=== PATIENT | male | born 1965 | race Caucasian/White ===

== ENCOUNTER 2016-06-16 15:33 | Emergency (ER) | payer SELFPAY ==
[~2016-06-16 15:33] MED LIST: LEVA500T PO; MELO15TA2 PO; ULTR50TA5 PO; Z.0.NO CURRENT MEDS
[2016-06-16 15:36] VITALS: BP 131/94; PULSE 92; RESP 15; TEMP 98.2; O2SAT 98
--- NOTE | 2016-06-16 16:39 | PD ---
HPI Chief Complaint: Medication Refill Request Time Seen by Provider: 16:38 Travel History International Travel<30 days: No Contact w/Intl Traveler<30days: No Traveled to known affect area: No History of Present Illness HPI 51-year-old male presents to the ED for medication refill. Patient endorses pain and swelling in the testicles, left greater than right. States this is been present for approximately 6 months. He denies fever, chills, abdominal pain, dysuria, penile discharge, perineal pain. Patient states he was seen in the ED a few weeks ago, prescribed Levaquin. He states he is unable to afford this medication and requests a different prescription. PFSH Past Medical History Blood Disorders: No Cancer: No Cardiovascular Problems: No Chemotherapy: No Diminished Hearing: No Endocrine: No Genitourinary: No Immune Disorder: No Musculoskeletal: No Neurologic: No Psychiatric: No Respiratory: No Radiation Therapy: No Past Surgical History AICD: No Joint Replacement: No Pacemaker: No Other Surgery: No Social History Alcohol Use: No Tobacco Use: Yes (1 PPD) Substance Use: No Allergies-Medications (Allergen,Severity, Reaction): Coded Allergies: No Known Allergies (Verified , 06/16/16) Reported Meds & Prescriptions Reported Meds & Active Scripts Active Levaquin (Levofloxacin) 500 Mg Tab 500 Mg PO DAILY 10 Days Ultram (Tramadol HCl) 50 Mg Tab 50 Mg PO Q6H PRN Review of Systems Except as stated in HPI: all other systems reviewed are Neg Physical Exam Narrative GENERAL: Well-nourished, well-developed white male in no acute distress. SKIN: Warm and dry. HEAD: Normocephalic. EYES: No scleral icterus. No injection or drainage. NECK: Supple, trachea midline. No JVD or lymphadenopathy. CARDIOVASCULAR: Regular rate and rhythm without murmurs, gallops, or rubs. RESPIRATORY: Breath sounds equal bilaterally. No accessory muscle use. GASTROINTESTINAL: Abdomen soft, non-tender, nondistended. Active bowel sounds. No palpable masses. GENITOURINARY: Deferred until a nurse was present. Unable to perform, patient left AMA MUSCULOSKELETAL: No cyanosis, or edema. Patient is ambulatory and moves extremities spontaneously. BACK: Nontender without obvious deformity. No CVA tenderness. Data Data Last Documented VS Vital Signs Date Time Temp Pulse Resp B/P Pulse Ox O2 Delivery O2 Flow Rate FiO2 06/16/16 15:36 98.2 92 15 131/94 98 Orders Urinalysis - C+S If Indicated (06/16/16 16:56) Gc And Chlamydia Pcr (06/16/16 16:56) Sodium Chloride 0.9% Flush (Ns Flush) (06/16/16 17:00) MDM Medical Decision Making Medical Screen Exam Complete: Yes Emergency Medical Condition: Yes Medical Record Reviewed: Yes Differential Diagnosis Hydrocele versus spermatocele versus epididymitis versus varicocele versus hernia versus orchitis versus prostatitis versus other Narrative Course 51-year-old male presents to the ED for medication refill. Patient endorses pain and swelling in the testicles, left greater than right. States this is been present for approximately 6 months. He denies fever, chills, abdominal pain, dysuria, penile discharge, perineal pain. Patient states he was seen in the ED a few weeks ago, prescribed Levaquin. He states he is unable to afford this medication and requests a different prescription. Vitals reviewed. Physical exam is unremarkable. UA, GC, chlamydia ordered. I deferred the male exam until the nurse was available to be present. Upon reentering the room it was found that the patient left AMA. Diagnosis Primary Impression: Left against medical advice Disposition: 07 AGAINST MEDICAL ADVICE Norma Meneses Jun 16, 2016 16:39
[2016-06-16] MEDS ORDERED: SODIUM CHLORIDE 0.9% FLUSH 5 ML FLUSH IVF PRN (17:00)
== END 2016-06-16 18:56 | disposition left against medical advice (07) ==
LOC: NETRI 15:33
DX: N50.812 Left testicular pain (principal); N50.811 Right testicular pain; N50.89 Other specified disorders of the male genital organs; F17.200 Nicotine dependence, unspecified, uncomplicated; Z53.20 Procedure and treatment not carried out because of patient's decision for unspecified reasons
CPT/HCPCS: 99281

== ENCOUNTER 2016-06-23 12:57 | Emergency (ER) | payer SELFPAY ==
[~2016-06-23] VITALS: Ht 180.3 cm; Wt 75.0 kg
[~2016-06-23 12:57] MED LIST changes: -MELO15TA2 PO; -Z.0.NO CURRENT MEDS
[2016-06-23 13:11] VITALS: BP 125/90; PULSE 77; RESP 16; TEMP 97.8; O2SAT 97
== END 2016-06-23 14:28 | disposition left against medical advice (07) ==
LOC: PHED 12:57
DX: N44.2 Benign cyst of testis (principal)
CPT/HCPCS: 99281

== ENCOUNTER 2016-07-07 13:14 | Emergency (ER) | payer SELFPAY ==
[~2016-07-07] VITALS: Ht 180.3 cm; Wt 79.5 kg
[2016-07-07 13:15] VITALS: BP 133/87; PULSE 102; RESP 12; TEMP 97.8; O2SAT 96
--- NOTE | 2016-07-07 13:44 | PD ---
HPI Chief Complaint: Complaint Time Seen by Provider: 13:30 Travel History International Travel<30 days: No Contact w/Intl Traveler<30days: No Traveled to known affect area: No History of Present Illness HPI 51-year-old male presents for evaluation of left testicle pain. Symptoms started 4-6 months ago. It is an aching pain in the left testicle that is worse when sitting. No alleviating factors. Denies abdominal pain, nausea or vomiting, fevers or chills, rectal pain, dysuria, hematuria, flank pain, scrotal trauma, urethral discharge, new sexual partners. The patient was seen here for evaluation of this issue on May 13. He had an ultrasound which revealed small hydroceles and small left-sided spermatoceles. He was given a ten-day course of Levaquin which initially he cannot afford. He was eventually able to buy the medication and he finished 4 days ago. The pain is worse in the left testicle since then which prompted her reevaluation. The patient was also seen here in June 16 left AMA and he checked in on June 23 but he left without being seen. He has not yet followed up with a primary care physician or urologist for evaluation of this issue. He has no other complaints. PFSH Past Medical History Blood Disorders: No Cancer: No Cardiovascular Problems: No Chemotherapy: No Diminished Hearing: No Endocrine: No Genitourinary: No Immune Disorder: No Musculoskeletal: No Neurologic: No Psychiatric: No Respiratory: No Radiation Therapy: No Past Surgical History AICD: No Joint Replacement: No Pacemaker: No Other Surgery: No Social History Alcohol Use: No Tobacco Use: Yes (1 PPD) Substance Use: No Allergies-Medications (Allergen,Severity, Reaction): Coded Allergies: No Known Allergies (Verified , 07/07/16) Reported Meds & Prescriptions Reported Meds & Active Scripts Active No Active Prescriptions or Reported Medications Review of Systems Except as stated in HPI: all other systems reviewed are Neg Physical Exam Narrative GENERAL: Well-developed well-nourished male in no acute distress SKIN: Warm and dry. HEAD: Atraumatic. Normocephalic. EYES: Pupils equal and round. No scleral icterus. No injection or drainage. CARDIOVASCULAR: Regular rate and rhythm. No murmur appreciated. RESPIRATORY: No accessory muscle use. Clear to auscultation. Breath sounds equal bilaterally. GASTROINTESTINAL: Abdomen soft, non-tender, nondistended. Hepatic and splenic margins not palpable. : Normal appearing scrotum with descended testicles, no urethral discharge. The patient has some tenderness to palpation to the left testicle. No tenderness to palpation to the right testicle. No scrotal edema or erythema. There is no palpable inguinal hernia. There is no inguinal lymphadenopathy. No skin changes. MUSCULOSKELETAL: No obvious deformities. No clubbing. No cyanosis. No edema. NEUROLOGICAL: Awake and alert. No obvious cranial nerve deficits. Motor grossly within normal limits. Normal speech. Data Data Last Documented VS Vital Signs Date Time Temp Pulse Resp B/P Pulse Ox O2 Delivery O2 Flow Rate FiO2 07/07/16 13:15 97.8 102 12 133/87 96 Room Air Orders Urinalysis - C+S If Indicated (07/07/16 13:38) Us Testicles W Doppler (07/07/16 13:38) Urine Culture (07/07/16 13:35) Azithromycin (Zithromax) (07/07/16 15:15) Ceftriaxone Inj (Rocephin Inj) (07/07/16 15:15) Lidocaine 1% Inj (50 Ml) (Xylocaine 1% I (07/07/16 15:15) Naproxen (Naprosyn) (07/07/16 15:15) Labs Laboratory Tests Test 07/07/16 13:35 Urine Color DARK-YELLOW Urine Turbidity CLEAR Urine pH 5.5 Urine Specific [place] 1.030 Urine Protein 30 mg/dL Urine Glucose (UA) NEG mg/dL Urine Ketones TRACE mg/dL Urine Occult Blood NEG Urine Nitrite NEG Urine Bilirubin NEG Urine Urobilinogen 4.0 MG/DL Urine Leukocyte Esterase MOD Urine RBC 1 /hpf Urine WBC 18 /hpf Urine Squamous Epithelial <1 /hpf Cells Urine Hyaline Casts 8 /lpf Urine Mucus MOD /lpf Microscopic Urinalysis Comment CULTURE INDICATED MDM Medical Decision Making Medical Screen Exam Complete: Yes Emergency Medical Condition: Yes Medical Record Reviewed: Yes Differential Diagnosis Varicocele, spermatocele, hydrocele, epididymitis, orchitis, testicular torsion , inguinal hernia, scrotal cellulitis Narrative Course 51-year-old male presents with 4-6 months of left testicle pain. He recently finished a ten-day course of Levaquin with no improvement of his symptoms. Physical examination is benign. He does have tenderness to palpation localized focally to the left testicle with no obvious scrotal changes. He has no symptoms to suggest urethritis. Plan is for urinalysis, scrotal ultrasound. This patient would benefit from urology follow-up given the chronicity of his symptoms. Ultrasound reveals no acute abnormalities. Cystic structures bilaterally as well as small bilateral hydroceles. Urinalysis does reveal pyuria and so pending urine culture the patient will be given a prescription for Bactrim. He will also be given azithromycin and Rocephin here to cover for chlamydia and gonorrhea. He is encouraged to follow-up with a urologist as an outpatient. He is stable for discharge. Diagnosis Primary Impression: Pain in left testicle Additional Impression: Pyuria Referrals: Urologist Additional Instructions: Follow-up with a urologist if symptoms persist. Medication as prescribed. Avoid tobacco products. Return for any emergent medical conditions. Med/Other Pt SpecificInfo: Prescription(s) given Scripts Sulfamethoxazole-Trimethoprim (Bactrim DS)800-160 Mg Tab1 Tab PO BID #20 TAB Ref 0 Prov:Yuliana Cheng MD 07/07/16 Naproxen 500 Mg [id number] Mg PO BID 7 Days Ref 0 Prov:Yuliana Cheng MD 07/07/16 Disposition: 01 DISCHARGE HOME Condition: Stable Dieter Hoyt Jul 07, 2016 13:44
[2016-07-07 14:14] LABS: BLOOD, URINE NEG (NEG); GLUCOSE,URINE NEG (NEG); HYALINE CAST, URINE 8 /lpf (RARE); KETONE, URINE TRACE mg/dL (NEG); MUCUS URINE MOD /lpf (OCC); NITRITE,URINE NEG (NEG); PH, URINE 5.5 (5.0-8.5); SQUAMOUS EPITHELIAL CELL URINE <1 /hpf (0-5); URINE COLOR DARK-YELLOW (YELLW/STRAW)
[2016-07-07 14:24] LABS: COMMENT (UR) CULTURE INDICATED; CULTURE IF INDICATED CULTURE INDICATED
--- NOTE | 2016-07-07 15:05 | RADRPT ---
EXAM DATE/TIME: 07/07/2016 14:14 [facility] COMPARISON: US TESTICLE W/DOPPLER, May 13, 2016, 22:55. INDICATIONS : Testicle pain. MEDICAL HISTORY : Testicle pain. SURGICAL HISTORY : Right hand surgery. ENCOUNTER: Subsequent ACUITY: 2 months PAIN SCORE: 5/10 LOCATION: Left testicle. MEASUREMENTS: RIGHT TESTICLE: 3.3 x 2.4 x 3.3cm LEFT TESTICLE: 4.2 x 2.6 x 3.2cm FINDINGS: RIGHT TESTICLE: Homogeneous echotexture without intra or extratesticular mass. Blood flow is symmetric and within no rmal limits. No varicocele. There is a small hydrocele. Small cystic structures are present in the h ead of the epididymis. LEFT TESTICLE: Homogeneous echotexture without intra or extratesticular mass. Blood flow is symmetric and within no rmal limits. No varicocele. There is a small hydrocele. Small cystic structures are present in the h ead of the epididymis. SCROTUM: Within normal limits. CONCLUSION: 1. The testicles remain intrinsically normal in appearance with symmetric normal color flow. 2. Small cystic structures in the head of both epididymides. These likely represent small spermatocel es. 3. Small bilateral hydroceles. Jevon Duron MD on July 07, 2016 at 15:01 Board Certified Radiologist. This report was verified electronically.
[2016-07-07] MEDS ORDERED: BACT800T5 PO (15:11)
[2016-07-07] MEDS ORDERED: NAPR500T PO (15:11)
[2016-07-07] MEDS ORDERED: NAPROXEN 500 MG TAB PO ONE (15:15)
[2016-07-07] MEDS ORDERED: cefTRIAXone 250 MG VIAL IM ONE (15:15)
[2016-07-07] MEDS ORDERED: LIDOCAINE HCL 1% 50 ML VIAL XX ONE (15:15)
[2016-07-07] MEDS ORDERED: AZITHROMYCIN 250 MG TAB PO ONE (15:15)
== END 2016-07-07 15:50 | disposition home or self-care (01) ==
LOC: NETRI 13:14
DX: N50.812 Left testicular pain (principal); N39.0 Urinary tract infection, site not specified
CPT/HCPCS: 76870; 81001; 87086; 93975; 96372; 99284; J0696

== ENCOUNTER 2016-09-03 17:23 | Emergency (ER) | payer SELFPAY ==
[~2016-09-03 17:23] MED LIST changes: +BACT800T5 PO; -LEVA500T PO; +NAPR500T PO; -ULTR50TA5 PO
[2016-09-03 17:27] VITALS: BP 130/91; PULSE 82; RESP 20; TEMP 97.4; O2SAT 98
[2016-09-03] MEDS ORDERED: DOXY100C PO (18:32)
[2016-09-03] MEDS ORDERED: DICL75TA PO (18:32)
--- NOTE | 2016-09-03 18:39 | PD ---
HPI Chief Complaint: Lump, Cyst, Hernia Time Seen by Provider: 18:34 Travel History International Travel<30 days: No Contact w/Intl Traveler<30days: No Traveled to known affect area: No History of Present Illness HPI 51-year-old white male presents to emergency Department with complaints of recurrent left testicular pain. The patient has been treated several times in emergency department for the same problem. He has not follow-up with a urologist or the health Department. He states that he has had pain once again over last 1-2 weeks in the left testicle. It is moderate in nature. He denies any associated symptoms of fever chills, nausea or vomiting or abdominal pain. He does report some lower back pain, increased urinary frequency and dysuria. He denies any urethral discharge or rashes. He states that this is a similar type pain that he's had in the past. PFSH Past Medical History Narrative Medical Epididymitis Blood Disorders: No Cancer: No Cardiovascular Problems: No Chemotherapy: No Diminished Hearing: No Endocrine: No Genitourinary: No Immune Disorder: No Musculoskeletal: No Neurologic: No Psychiatric: No Respiratory: No Radiation Therapy: No Tetanus Vaccination: < 5 Years Influenza Vaccination: No Past Surgical History Surgical History: No Previous Surgery AICD: No Joint Replacement: No Pacemaker: No Other Surgery: No Social History Alcohol Use: Yes Tobacco Use: Yes (1 PPD) Substance Use: No Allergies-Medications (Allergen,Severity, Reaction): Coded Allergies: No Known Allergies (Verified , 09/03/16) Reported Meds & Prescriptions Reported Meds & Active Scripts Active Doxycycline Hyclate 100 Mg Cap 100 Mg PO BID Diclofenac Sodium DR (Diclofenac Sodium) 75 Mg Tabdr 75 Mg PO BID Review of Systems Except as stated in HPI: all other systems reviewed are Neg Physical Exam Narrative GENERAL: This is a well-nourished, well-developed patient, in no apparent distress. SKIN: No rashes, ecchymoses or lesions. Warm and dry. HEAD: Atraumatic. Normocephalic. EYES: PERRL, EOMI, no discharge or injection. No scleral icterus. EARS: Clear NOSE: Nasal turbinates appear normal. THROAT: Mucosa pink and moist. Airway patent. NECK: Trachea midline. supple, moves head freely. LUNGS: Clear to auscultation. CV: Regular in rhythm. ABDOMEN: Soft nontender. EXT: No clubbing cyanosis or edema. GENITOURINARY: Circumcised. Testes descended bilaterally without evidence of rotation. There is no scrotal swelling. No scrotal erythema or warmth. The patient has tenderness to the left epididymitis. There is no hernias. No lesions or erythema. No urethral discharge. There is no tenderness around the anus or groin. No obvious abscess. Data Data Last Documented VS Vital Signs Date Time Temp Pulse Resp B/P Pulse Ox O2 Delivery O2 Flow Rate FiO2 09/03/16 17:27 97.4 82 20 130/91 98 Room Air [facility] Medical Decision Making Medical Screen Exam Complete: Yes Emergency Medical Condition: Yes Medical Record Reviewed: Yes Differential Diagnosis Differential diagnoses: Varicocele, hydrocele, spermatocele, epididymitis, urethritis, perianal abscess Narrative Course Patient's 2 ultrasounds have been reviewed along with his charts. His clinical history and exam is consistent with epididymitis. He has been strongly advised to follow-up with urology, patient assistance and or the [facility] Department. The patient has been advised that he has reached maximum care through the ER and that this needs to be followed up by the specialist. He is discharged in stable condition. This is epididymitis Diagnosis Primary Impression: Epididymitis Patient Instructions: General Instructions Additional Instructions: Rest. Increase fluids. Follow-up with the [facility] for further evaluation and treatment. Doxycycline and diclofenac. Follow-up with patient assistance. Follow-up with Dr. Krishnan in one week. Always use a condom. Return to the ER if any problems. Med/Other Pt SpecificInfo: Prescription(s) given Scripts Doxycycline Hyclate 100 Mg [id number] Mg PO BID #20 CAP Prov:Yuliana Cheng MD 09/03/[address] 75 Mg Tabdr75 Mg PO BID #20 TAB Prov:Yuliana Cheng MD 09/03/16 Disposition: 01 DISCHARGE HOME Condition: Stable Juliano Madden Sep 03, 2016 18:39
[2016-09-03 18:53] VITALS: BP 126/85; TEMP 97.8
== END 2016-09-03 18:54 | disposition home or self-care (01) ==
LOC: NEPD 17:23
DX: N45.1 Epididymitis (principal); F17.210 Nicotine dependence, cigarettes, uncomplicated
CPT/HCPCS: 99283

== ENCOUNTER 2017-09-25 12:58 | Emergency (ER) | payer SELFPAY ==
[~2017-09-25] VITALS: Ht 180.3 cm; Wt 80.0 kg
[~2017-09-25 12:58] MED LIST changes: -BACT800T5 PO; +DICL75TA PO; +DOXY100C PO; -NAPR500T PO
[2017-09-25 13:11] VITALS: BP 177/93; PULSE 47; RESP 16; O2SAT 99
[2017-09-25] MEDS ORDERED: SODIUM CHLOR 0.9% 1000 ML INJ 1,000 ML IV SCH (13:26)
[2017-09-25] MEDS ORDERED: KETOROLAC TROMETHAMINE 30 MG/ML (IVP) VIAL IVP ONE (13:30)
[2017-09-25] MEDS ORDERED: SODIUM CHLORIDE 0.9% FLUSH 10 ML FLUSH IV FLUSH PRN (13:30)
[2017-09-25 13:40] VITALS: O2SAT 100
[2017-09-25] MEDS ORDERED: DIATRIZOATE MEGLUM/DIATRIZOATE SOD 9 ML CUP ONE (13:42)
[2017-09-25 14:12] LABS: AUTOMATED NEUTROPHIL # 14.4 TH/MM3 (1.8-7.7); BASOPHIL # 0.1 TH/MM3 (0-0.2); BASOPHIL % 0.4 % (0.0-2.0); EOSINOPHIL # 0.2 TH/MM3 (0-0.4); HEMATOCRIT 42.4 % (39.0-51.0); HEMOGLOBIN 14.6 GM/DL (13.0-17.0); LYMPH % 11.4 % (9.0-44.0); MEAN CELL VOLUME 84.8 FL (80.0-100.0); MEAN CORPUSCULAR HEMOGLOBIN 29.1 PG (27.0-34.0); MEAN CORPUSCULAR HGB CONC 34.3 % (32.0-36.0); MEAN PLATELET VOLUME 9.5 FL (7.0-11.0); MONO % 5.3 % (0.0-8.0); MONOCYTE # 0.9 TH/MM3 (0-0.9); NEUT % 81.9 % (16.0-70.0); PLATELET COUNT 73 TH/MM3 (150-450); RED CELL DISTRIBUTION WIDTH 14.6 % (11.6-17.2); WHITE BLOOD COUNT 17.5 TH/MM3 (4.0-11.0)
[2017-09-25 14:30] LABS: ALBUMIN 3.6 GM/DL (3.4-5.0); ALKALINE PHOSPHATASE 96 U/L (45-117); ALT (GPT) 24 U/L (12-78); AST (GOT) 27 U/L (15-37); BICARBONATE 24.9 MEQ/L (21.0-32.0); BLOOD UREA NITROGEN 23 MG/DL (7-18); CALCIUM 8.6 MG/DL (8.5-10.1); CHLORIDE 109 MEQ/L (98-107); CREATININE 1.18 MG/DL (0.60-1.30); GLOMERULAR FILTRATION RATE 65 ML/MIN (>89); GLUCOSE,RANDOM 92 MG/DL (74-106); SODIUM (NA) 141 MEQ/L (136-145); TOTAL BILIRUBIN ADULT 0.4 MG/DL (0.2-1.0); TOTAL PROTEIN 7.1 GM/DL (6.4-8.2)
[2017-09-25 14:44] LABS: BANDS 3 % (0-6); LYMPHOCYTES 7 % (9-44); MONOCYTES 3 % (0-8); NEUTROPHIL # MANUAL DIFF 15.8 TH/MM3 (1.8-7.7); POLYS (SEG NEUTROPHILS) 87 % (16-70)
[2017-09-25] MEDS ORDERED: IOHEXOL 350 MG/ML 10 ML VIAL (for RAD DIAG) IVCONTRAST ONE (15:06)
[2017-09-25 15:13] LABS: BILIRUBIN, URINE NEG (NEG); BLOOD, URINE MOD (NEG); GLUCOSE,URINE NEG (NEG); KETONE, URINE NEG (NEG); MUCUS URINE FEW /lpf (OCC); NITRITE,URINE NEG (NEG); PH, URINE 6.5 (5.0-8.5); URINE COLOR YELLOW (YELLW/STRAW); URINE LEUKOCYTE ESTERASE NEG (NEG)
--- NOTE | 2017-09-25 15:56 | RADRPT ---
EXAM DATE/TIME: 09/25/2017 14:56 [facility] COMPARISON: No previous studies available for comparison. INDICATIONS : Right side abdominal pain. IV CONTRAST: 94 cc Omnipaque 350 (iohexol) IV ORAL CONTRAST: Prescribed oral contrast ingested. RADIATION DOSE: 5.93 CTDIvol (mGy) MEDICAL HISTORY : None SURGICAL HISTORY : None. ENCOUNTER: Initial ACUITY: 1 day PAIN SCALE: 7/10 LOCATION: Right abdomen. TECHNIQUE: Volumetric scanning of the abdomen and pelvis was performed. Using automated exposure control and ad justment of the mA and/or kV according to patient size, radiation dose was kept as low as reasonably achievable to obtain optimal diagnostic quality images. DICOM format image data is available electro nically for review and comparison. FINDINGS: LOWER LUNGS: The visualized lower lungs are clear. LIVER: Homogeneous density without lesion. There is no dilation of the biliary tree. No calcified gallston es. SPLEEN: Normal size without lesion. PANCREAS: Within normal limits. KIDNEYS: Normal in size and shape. There is no mass, stone or hydronephrosis. 2.5 cm cyst in the parenchyma of the upper pole left kidney. ADRENAL GLANDS: Within normal limits. VASCULAR: There is no aortic aneurysm. BOWEL/MESENTERY: No dilated loops of small or large bowel. The cecum is hypermobile and located in the midline pelvis . Mild amount of stool throughout the colon. No evidence of free fluid. ABDOMINAL WALL: Within normal limits. RETROPERITONEUM: There is no lymphadenopathy. BLADDER: No wall thickening or mass. REPRODUCTIVE: Within normal limits. INGUINAL: There is no lymphadenopathy or hernia. MUSCULOSKELETAL: Moderate severity degenerative changes in the posterior elements of the lower lumbar spine. CONCLUSION: Negative CT abdomen/pelvis with contrast. Byron Lee MD on September 25, 2017 at 15:42 Board Certified Radiologist. This report was verified electronically.
--- NOTE | 2017-09-25 16:14 | PD ---
HPI Chief Complaint: Abdominal Pain Time Seen by Provider: 13:11 Travel History International Travel<30 days: No Contact w/Intl Traveler<30days: No Traveled to known affect area: No History of Present Illness HPI This is a 52-year-old male with a history of substance abuse, presents today via [facility] with complaints of right lower abdominal pain. Patient denies any previous history of such pain. He denies any injury. The patient denies any bulging in his groin. There are no other complaints at time of my examination. According to the paramedics, the patient is homeless and was found in the backyard of his sister's house. Apparently when the police were called, he reported abdominal pain and [facility] was called. PFS Past Medical History Medical History: Denies Significant Hx Blood Disorders: No Cancer: No Cardiovascular Problems: No Chemotherapy: No Diminished Hearing: No Endocrine: No Genitourinary: No Immune Disorder: No Musculoskeletal: No Neurologic: No Psychiatric: No Respiratory: No Radiation Therapy: No Past Surgical History Surgical History: No Previous Surgery AICD: No Joint Replacement: No Pacemaker: No Other Surgery: No Social History Alcohol Use: No Tobacco Use: Yes (1 PPD) Substance Use: No Allergies-Medications (Allergen,Severity, Reaction): Coded Allergies: No Known Allergies (Verified Adverse Reaction, Unknown, 09/25/17) Reported Meds & Prescriptions Reported Meds & Active Scripts Active Review of Systems Except as stated in HPI: all other systems reviewed are Neg General / Constitutional: No: Fever, Chills HENT: No: Lightheadedness Cardiovascular: No: Chest Pain or Discomfort Respiratory: No: Cough, Shortness of Breath Gastrointestinal: Positive: Abdominal Pain (Right lower quadrant), No: Nausea, Vomiting, Diarrhea, Constipation, Changes in Bowel Habits Genitourinary: No: Frequency, Dysuria Musculoskeletal: No: Weakness, Pain Neurologic: No: Weakness, Dizziness, Headache Physical Exam Narrative GENERAL: Well developed well-nourished male in no acute respiratory distress. SKIN: Focused skin assessment warm/dry. HEAD: Atraumatic. Normocephalic. EYES: Pupils equal and round. No scleral icterus. No injection or drainage. ENT: No nasal bleeding or discharge. Mucous membranes pink and moist. NECK: Trachea midline. No JVD. CARDIOVASCULAR: Regular rate and rhythm. No murmur appreciated. RESPIRATORY: No accessory muscle use. Clear to auscultation. Breath sounds equal bilaterally. GASTROINTESTINAL: Abdomen soft, nondistended. Patient had tenderness to deep palpation in the right lower quadrant. There is no rebound or guarding. Pulsatile masses. No tenderness extending into his groin or testicles. MUSCULOSKELETAL: No obvious deformities. No clubbing. No cyanosis. No edema. NEUROLOGICAL: Awake and alert. No obvious cranial nerve deficits. Motor grossly within normal limits. Normal speech. Data Data Last Documented VS Vital Signs Date Time Temp Pulse Resp B/P (MAP) Pulse Ox O2 Delivery O2 Flow Rate FiO2 09/25/17 18:25 63 18 140/94 (109) 95 Room Air Orders Orders Complete Blood Count With Diff (09/25/17 13:26) Comprehensive Metabolic Panel (09/25/17 13:26) Urinalysis - C+S If Indicated (09/25/17 13:26) Ct Abd/Pel W Iv Contrast(Rout) (09/25/17 13:26) Iv Access Insert/Monitor (09/25/17 13:26) Ecg Monitoring (09/25/17 13:26) Oximetry (09/25/17 13:26) Sodium Chlor 0.9% 1000 Ml Inj (Ns 1000 M (09/25/17 13:26) Sodium Chloride 0.9% Flush (Ns Flush) (09/25/17 13:30) Ketorolac Inj (Toradol Inj) (09/25/17 13:30) Oral Contrast - Adult (09/25/17 13:31) Diatrizoate Liq ( Gastroanthony Liq) (09/25/17 13:42) Iohexol 350 Inj (Omnipaque 350 Inj) (09/25/17 15:06) Labs Laboratory Tests Test 09/25/17 13:50 09/25/17 14:45 White Blood Count 17.5 TH/MM3 Red Blood Count 5.00 MIL/MM3 Hemoglobin 14.6 GM/DL Hematocrit 42.4 % Mean Corpuscular Volume 84.8 FL Mean Corpuscular Hemoglobin 29.1 PG Mean Corpuscular Hemoglobin Concent 34.3 % Red Cell Distribution Width 14.6 % Platelet Count 73 TH/MM3 Mean Platelet Volume 9.5 FL Neutrophils (%) (Auto) 81.9 % Lymphocytes (%) (Auto) 11.4 % Monocytes (%) (Auto) 5.3 % Eosinophils (%) (Auto) 1.0 % Basophils (%) (Auto) 0.4 % Neutrophils # (Auto) 14.4 TH/MM3 Lymphocytes # (Auto) 2.0 TH/MM3 Monocytes # (Auto) 0.9 TH/MM3 Eosinophils # (Auto) 0.2 TH/MM3 Basophils # (Auto) 0.1 TH/MM3 CBC Comment AUTO DIFF Differential Total Cells Counted 100 Neutrophils % (Manual) 87 % Band Neutrophils % 3 % Lymphocytes % 7 % Monocytes % 3 % Neutrophils # (Manual) 15.8 TH/MM3 Differential Comment FINAL DIFF MANUAL Atypical Lymphocytes % Platelet Estimate LOW Platelet Morphology Comment NORMAL Red Cell Morphology Comment NORMAL Blood Urea Nitrogen 23 MG/DL Creatinine 1.18 MG/DL Random Glucose 92 MG/DL Total Protein 7.1 GM/DL Albumin 3.6 GM/DL Calcium Level 8.6 MG/DL Alkaline Phosphatase 96 U/L Aspartate Amino Transf (AST/SGOT) 27 U/L Alanine Aminotransferase (ALT/SGPT) 24 U/L Total Bilirubin 0.4 MG/DL Sodium Level 141 MEQ/L Potassium Level 4.4 MEQ/L Chloride Level 109 MEQ/L Carbon Dioxide Level 24.9 MEQ/L Anion Gap 7 MEQ/L Estimat Glomerular Filtration Rate 65 ML/MIN Urine Color YELLOW Urine Turbidity CLEAR Urine pH 6.5 Urine Specific [place] 1.016 Urine Protein TRACE mg/dL Urine Glucose (UA) NEG mg/dL Urine Ketones NEG mg/dL Urine Occult Blood MOD Urine Nitrite NEG Urine Bilirubin NEG Urine Urobilinogen LESS THAN 2.0 MG/DL Urine Leukocyte Esterase NEG Urine RBC /hpf Urine WBC 1 /hpf Urine Mucus FEW /lpf Microscopic Urinalysis Comment CULT NOT INDICATED MDM Medical Decision Making Medical Screen Exam Complete: Yes Emergency Medical Condition: Yes Differential Diagnosis Appendicitis versus hernia versus renal calculus Narrative Course 52-year-old male who has a reported history of substance abuse, presents today with plaints right lower quadrant pain. The patient is afebrile. The patient has reproducible pain in his right lower quadrant. CT scan of his abdomen pelvis showed no evidence of acute process. The patient will be discharged told to use Motrin as needed for pain. Diagnosis Primary Impression: Abdominal pain Additional Instructions: [place] diet. Motrin for pain. Follow-up with primary care physician. Disposition: 01 DISCHARGE HOME Condition: Stable Adrián Daniels MD Sep 25, 2017 16:14
[2017-09-25 17:08] VITALS: BP 100/58; PULSE 58; RESP 18; O2SAT 95
[2017-09-25 18:25] VITALS: BP 140/94; PULSE 63; RESP 18; O2SAT 95
== END 2017-09-25 19:17 | disposition home or self-care (01) ==
LOC: NEPC 12:58
DX: R10.31 Right lower quadrant pain (principal); F17.200 Nicotine dependence, unspecified, uncomplicated
CPT/HCPCS: 74177; 80053; 81001; 85007; 85027; 96361; 96374; 99285; J1885; J7030; Q9963; Q9967